=== PATIENT | female | born 1975 | race Caucasian/White ===

== ENCOUNTER 2019-06-10 11:22 | Day surgery (SDC) | payer OTHER ==
[~2019-06-10] VITALS: Ht 165.1 cm; Wt 118.2 kg
[2019-06-10] VITALS (9 sets, daily range): BP systolic 120–154; BP diastolic 80–95; PULSE 68–102; RESP 11–24; Ht 165.1 cm; Wt 118.2 kg
[~2019-06-10 11:22] MED LIST: CYCL10TA7 PO; GABA300C16 PO; NORE-38 PO; TRAM50TA PO
[2019-06-10] MEDS ORDERED: LACTATED RINGER'S 1,000 ML IV SCH (13:00)
--- NOTE | 2019-06-10 14:15 | HPN ---
Date/Time of Note Date/Time of Note DATE: 06/10/19 TIME: 14:14 Interval H&P Admission Note Pt. seen H&P reviewed: No system changes RAFFI STAHL MD Jun 10, 2019 14:15
[2019-06-10] MEDS ORDERED: IPRATROPIUM (NEB) 0.5 MG/2.5 ML AMP HHN PRN (14:30)
[2019-06-10] MEDS ORDERED: DIPHENHYDRAMINE 50 MG INJ IV PRN (14:30)
[2019-06-10] MEDS ORDERED: OXYCODONE/ACETAMINOPHEN (5/325) TAB PO PRN ×2 (14:30)
[2019-06-10] MEDS ORDERED: ALBUTEROL 0.083% (NEB) 2.5 MG/3 ML AMP HHN PRN (14:30)
[2019-06-10] MEDS ORDERED: LABETALOL HCL 20MG INJ IV PRN (14:30)
[2019-06-10] MEDS ORDERED: HYDROmorphONE 1 MG/5 ML IV SYRINGE IV PRN ×3 (14:30)
[2019-06-10] MEDS ORDERED: EPHEDrine 25 MG/5 ML SYG IV PRN (14:30)
[2019-06-10] MEDS ORDERED: ONDANSETRON 4 MG INJ IV PRN (14:30)
[2019-06-10] MEDS ORDERED: MIDAZOLAM 1 MG/ML 2 ML INJ IV PRN (14:30)
[2019-06-10] MEDS ORDERED: TRIMETHOBENZAMIDE 100 MG/ML VIAL IM PRN (14:30)
[2019-06-10] MEDS ORDERED: MEPERIDINE 25 MG INJ IV PRN (14:30)
[2019-06-10] MEDS ORDERED: FENTAnyl 50 MCG/ML VIAL IV PRN ×3 (14:30)
[2019-06-10] MEDS ORDERED: hydrALAzine 20 MG INJ IV PRN (14:30)
--- NOTE | 2019-06-10 14:30 | PREAC ---
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 not on B-Tori Reported Medications Cyclobenzaprine Hcl* (Cyclobenzaprine Hcl*) 10 Mg Tablet, 10 MG PO BID, #90 TAB 06/10/19 Gabapentin* (Gabapentin*) 300 Mg Capsule, 300 MG PO TID, #90 CAP 06/10/19 Tramadol Hcl* (Ultram*) 50 Mg Tablet, 50 MG PO Q8, TAB 06/10/19 Discontinued Reported Medications Noreth A-Et Estra-Fe Fumarate (Minastrin 24 Fe Chew) 1 Each Tab.chew, 1 TAB PO DAILY, #28 10/07/16 Current Medications Lactated Ringer's 1,000 ml @ 30 mls/hr Q24H IV ; Start 06/10/19 at 13:00 Meds reviewed: Yes Allergies Coded Allergies: erythromycin base (Unverified Allergy, Mild, HIVES, 06/10/19) Allergies Reviewed: Yes Labs/Studies Labs Reviewed: Reviewed by anesthesiologist Result Diagram: 06/10/19 1220 06/10/19 1220 Laboratory Tests 06/10/19 12:20 test: Negative Pre-procedure Exam Last vitals Vital Signs Date Temp Pulse Resp B/P (MAP) Pulse Ox O2 O2 Flow FiO2 Time Delivery Rate 06/10/19 97.9 102 16 124/86 100 12:43 (99) Airway: Adequate mouth opening, Adequate thyromental dist Mallampati: Mallampati II Teeth: Normal Lung: Normal Heart: Normal ASA Physical Status ASA physical status: 3 Emergency: None Planned Anesthetic General/MAC: MAC Planned Pain Management Parenteral pain med Pre-operative Attestations Prior to commencing anesthesia and surgery, the patient was re-evaluated, there was verification of: *The patient's identity *The results of appropriate recent lab work and preoperative vital signs *The above evaluation not changing prior to induction *Anesthetic plan, risk benefits, alternative and complications discussed with patient/family; questions answered; patient/family understands, accepts and wishes to proceed. Ramón Rain M.D. Jun 10, 2019 14:30
[2019-06-10] MEDS ORDERED: BUPIVACAINE 0.25% (MPF) 30 ML INJ ONE (14:31)
[2019-06-10] MEDS ORDERED: LIDOCAINE 1% (MPF) 30 ML INJ ONE (14:31)
[2019-06-10] MEDS ORDERED: MIDAZOLAM 1 MG/ML 2 ML INJ ONE ×2 (14:44→14:54)
[2019-06-10] MEDS ORDERED: FENTAnyl 50 MCG/ML VIAL ONE (14:44)
[2019-06-10] MEDS ORDERED: CEFAZOLIN 1 GM INJ ONE (14:54)
--- NOTE | 2019-06-10 16:29 | SIPON ---
Date/Time of Note Date/Time of Note DATE: 06/10/19 TIME: 16:28 Operative Report Preoperative Diagnosis PLS, failed back syndrome, lumbar radiculopathy, mid back pain Postoperative Diagnosis PLS, failed back syndrome, lumbar radiculopathy, mid back pain Operation/Procedure Performed Spinal cord stimulator trial, 2 leads Surgeon see signature line assistant spa manager none Anesthesia: MAC Estimated blood loss: minimal Transfusion Required none Specimen none Grafts/Implants none Complications none RAFFI STAHL MD Jun 10, 2019 16:29
--- NOTE | 2019-06-10 16:30 | PAC ---
Date/Time of Note Date/Time of Note DATE: 06/10/19 TIME: 16:30 Post-Anesthesia Notes Post-Anesthesia Note Last documented vital signs Vital Signs Date Temp Pulse Resp B/P (MAP) Pulse Ox O2 O2 Flow FiO2 Time Delivery Rate 06/10/19 97.9 102 16 124/86 100 12:43 (99) Activity: WNL Respiratory function: WNL Cardiovascular function: WNL Mental status: Baseline Pain reasonably controlled: Yes Hydration appropriate: Yes Nausea/Vomiting absent: Yes Ramón Rain M.D. Jun 10, 2019 16:30
--- NOTE | 2019-06-10 16:38 | OPR ---
Date/Time of Note Date/Time of Note DATE: 06/10/19 TIME: 16:29 Operative Report Procedure Date: Jun 10, 2019 Preoperative Diagnosis PLS, failed back syndrome, lumbar radiculopathy, mid back pain Postoperative Diagnosis PLS, failed back syndrome, lumbar radiculopathy, mid back pain Operation/Procedure Performed Spinal cord stimulator trial, 2 leads Surgeon see signature line Case Reviewer none Anesthesia Type: MAC Estimated Blood Loss: minimal Transfusion none Specimen none Grafts/Implants none Tubes/Drains none Complications none Pt Condition Post Procedure: stable Disposition: PACU Procedure Description I specifically reviewed the potential benefits and adverse effects of spinal cord stimulation with the patient, who does understand that the most common adverse effect would be lack of benefit. Severe complications such as nerve damage resulting in lower extremity weakness or numbness are rare. The potential benefit of this procedure would be decreased pain. After reviewing the procedure with the patient, informed consent to proceed with the placement of spinal cord stimulation lead was obtained. DESCRIPTION OF PROCEDURE: The patient was positioned on the fluoroscopy table in the prone position. Fluoroscopy was used to identify the upper lumbar levels. The lumbar and lower thoracic area was prepped with Chloroprep solution and draped with sterile towels and drapes. Standard operating room sterile technique was used throughout. At the needle entry point, the skin and subcutaneous tissues were infiltrated with 1% lidocaine. For the first electrode placement, a 15-gauge Tuohy needle was introduced and positioned with fluoroscopic imaging to enter the epidural space at the __T12-L1 interspace. The spinal cord stimulator lead was advanced through the epidural needle and repositioned until it was in an appropriate position (mid of T5), judged based on distribution of stimulation paresthesias to cover the area of pain on the ___mid back. The electrode array was sutured to the skin with the supplied anchor so that the # 1 electrode of the __midline___-sided lead was located at ____mid___ aspect of the ___T5___ vertebral body. In a similar fashion, another 15-gauge Tuohy needle was introduced and positioned with fluoroscopic imaging to enter the epidural space at the T12-L1 interspace. The spinal cord stimulator lead was advanced through the epidural needle and repositioned until it was in an appropriate position, judged based on distribution of stimulation paresthesias to cover the area of pain on the Left low back and left lower extremity . The electrode array was sutured to the skin with the anchor so that the # 1 electrode of the ___left -sided lead was located at ____top aspect of the ___T8____ vertebral body. Both before and after securing the electrode arrays as described above, complex programming of the spinal cord stimulator system was carried out including adjustment of amplitude, pulse width, rate and the available 16 electrodes. The electrode entry sites were covered with Dermabond, anker sutured twice with 3-0 silk, and then 4x4 andTegaderm, and the electrodes were connected to the gen erator. The patient was taken to the recovery area in good and stable condition. In the recovery room, approximately ___62___minutes were spent in complex programming of the spinal cord stimulator system. Patient was discharged home in stable condition after recovery. RAFFI STAHL MD Jun 10, 2019 16:38
== END 2019-06-10 17:42 | disposition home or self-care (01) ==
LOC: SDS 11:22
PROVIDERS: ATTEND Anesthesiology
DX: M54.16 Radiculopathy, lumbar region (principal)
CPT/HCPCS: 63685; 72072; 80048; 84703; 85025; 85610; 85730; J0690; J2250; J3010